=== PATIENT | female | born 1955 | race Caucasian/White ===

== ENCOUNTER 2017-03-30 12:51 | Outpatient (CLI) | payer OTHER ==
--- NOTE | 2017-03-30 15:07 | Magnetic Resonance Report ---
MRA HEAD WITHOUT CONTRAST INDICATION: Stroke. COMPARISON: None similar. FINDINGS: MRA of the head performed without intravenous contrast and demonstrates no evidence of flow-limiting stenosis, occlusion or vascular malformation. Left A1 hypoplastic. Please note that detection of aneurysms less than 5 mm is limited on this exam. CONCLUSION: Normal study of the [place]. Thank you for the opportunity to participate in this patient's care.
--- NOTE | 2017-03-30 15:44 | Magnetic Resonance Report ---
MRI BRAIN WITH AND WITHOUT CONTRAST INDICATION: Headache, conjunctival hemorrhage right eye. COMPARISON: None similar. FINDINGS: Multiplanar and multisequence MRI of the brain performed utilizing 15 ml MultiHance intravenously demonstrates no acute infarct, hemorrhage, mass effect or midline shift. No abnormal extra axial masses or fluid collections. Normal ventricles and sulci with minimal periventricular and slight white matter FLAIR and T2 weighted hyperintensities. Normal major intracranial vascular flow voids. No suspicious abnormal enhancement. Grossly normal eye globes and retrobulbar appearance. Normal posterior fossa with preserved basilar cisterns. Symmetric seventh and eighth nerve complexes. Dental susceptibility artifact. Rightward nasal septal bowing. Slight ethmoid sinusitis. Clear remainder imaged paranasal sinuses and mastoid air cells. Normal midline structures without evidence of Chiari malformation. CONCLUSION: No acute intracranial MRI abnormality with few incidental findings, as above. Thank you for the opportunity to participate in this patient's care.
== END 2017-03-30 12:52 | disposition home or self-care (01) ==
LOC: MRI 12:51
PROVIDERS: ATTEND Nurse Practitioner
DX: H11.31 Conjunctival hemorrhage, right eye (principal); J32.2 Chronic ethmoidal sinusitis; R51 Headache
CPT/HCPCS: 70544; 70553; A9577

== ENCOUNTER 2018-09-12 09:02 | Outpatient (CLI) | payer OTHER ==
[2018-09-12 10:36] LABS: Chol/HDL Ratio 3.31 %
== END 2018-09-12 09:03 | disposition home or self-care (01) ==
LOC: LAB 09:02
PROVIDERS: ATTEND Internal Medicine
DX: E11.9 Type 2 diabetes mellitus without complications (principal); E78.5 Hyperlipidemia, unspecified; E55.9 Vitamin D deficiency, unspecified; I10 Essential (primary) hypertension
CPT/HCPCS: 36415; 80061; 83036

== ENCOUNTER 2019-01-23 09:10 | Outpatient (CLI) | payer OTHER ==
[2019-01-23 10:40] LABS: Alanine Aminotransferase 20 units/L (7-56); Albumin 4.4 g/dL (3.9-5); BUN/Creatinine Ratio 38; Blood Urea Nitrogen 23 mg/dL (7-17); Calcium 9.3 mg/dL (8.4-10.2); Chol/HDL Ratio 2.51 %; HDL Cholesterol 62 mg/dL (40-59); Hemolysis Index 5; LDL Cholesterol,Direct 96 mg/dL (50-130)
== END 2019-01-23 09:11 | disposition home or self-care (01) ==
LOC: LAB 09:10
PROVIDERS: ATTEND Internal Medicine
DX: E78.5 Hyperlipidemia, unspecified (principal); E11.9 Type 2 diabetes mellitus without complications; R25.2 Cramp and spasm
CPT/HCPCS: 36415; 80053; 80061; 83036

== ENCOUNTER 2019-05-30 12:18 | Outpatient (CLI) | payer OTHER ==
--- NOTE | 2019-05-30 13:30 | Mammography Report ---
DIGITAL SCREENING MAMMOGRAM WITH CAD, 05/30/2019 INDICATION: Routine screening mammography. TECHNIQUE: Digital bilateral 2D mammography was obtained in the craniocaudal and mediolateral obliq ue projections. This examination was interpreted with the benefit of Computer-Aided Detection analysi s. COMPARISON: None available. FINDINGS: Breast Density: The breasts are heterogeneously dense, which may obscure small masses. A group of left upper calcifications and a left asymmetry near the calcifications on the CC view requ marcus additional imaging. There is no evidence of dominant mass, suspicious calcifications or big data platform architect ural distortion in the right breast. IMPRESSION: Left calcifications and asymmetry requiring additional imaging. Recommend recall for left lateral and spot magnification lateral and CC views and left breast ultrasound if needed. Follow up recommendation: Routine yearly Category 0: Incomplete. Needs additional imaging evaluation and/or prior mammograms for comparison. A "normal" or negative report should not discourage follow up or biopsy of a clinically significant f inding. A written summary of these findings will be mailed to the patient. The patient will be entered into a mammography reporting system which will generate a reminder letter for the patient's next appointmen t at the appropriate interval. The [employer] recommends yearly mammograms starting at age 40 and continuing as l mariano as a woman is in good health. Breast MRI is recommended for women with an approximate 20-25% or greater lifetime risk of breast cancer, including women with a strong family history of breast or ova yanet cancer or who have been treated for Hodgkin's disease. Signer Name: Pradip Grijalva MD Signed: 05/30/2019 1:26 PM Workstation Name: [id number]
== END 2019-05-30 12:19 | disposition home or self-care (01) ==
LOC: MAMMO 12:18
PROVIDERS: ATTEND Internal Medicine
DX: Z12.31 Encounter for screening mammogram for malignant neoplasm of breast (principal)
CPT/HCPCS: 77067

== ENCOUNTER 2019-07-18 10:22 | Outpatient (CLI) | payer OTHER ==
--- NOTE | 2019-07-18 12:31 | Mammography Report ---
DIGITAL DIAGNOSTIC MAMMOGRAM WITH CAD, 07/18/2019 INDICATION: Recall to evaluate calcifications and asymmetry identified at screening. R92.8 TECHNIQUE: Digital left mammographic imaging was performed. Magnification views were obtained. This examination was interpreted with the benefit of Computer-aided Detection analysis. COMPARISON: 05/30/2019 FINDINGS: Breast Density: The breasts are heterogeneously dense, which may obscure small masses. Spot magnification views demonstrate a cluster of amorphous calcifications with too many to count reshma cifications. They are located at 12:30 o'clock approximately 5 cm from the nipple. No associated mass . The previously identified asymmetry demonstrates satisfactory effacement on spot images. IMPRESSION: A suspicious cluster of calcifications at 12:30 o'clock left breast. Recommend stereotact ic needle core biopsy of the left breast. Follow up recommendation: Biopsy BI-RADS Category 4: Suspicious for Malignancy. I discussed the findings and the recommendation for a left stereotactic biopsy with Dr. Jefferson on 07/18/2019 at 12:26 PM EST. A "normal" or negative report should not discourage follow up or biopsy of a clinically significant f inding. A written summary of these findings will be mailed to the patient. The patient will be entered into a mammography reporting system which will generate a reminder letter for the patient's next appointmen t at the appropriate interval. According to the [employer], yearly mammograms are recommended starting at age 40 and continuing as long as a woman is in good health. Breast MRI is recommended for women with an rosario roximately 20-25% or greater lifetime risk of breast cancer, including women with a strong family his tory of breast or ovarian cancer and women who have been treated for Hodgkin's disease. Signer Name: Pradip Grijalva MD Signed: 07/18/2019 12:27 PM Workstation Name: [id number]
== END 2019-07-18 10:23 | disposition home or self-care (01) ==
LOC: MAMMO 10:22
PROVIDERS: ATTEND Internal Medicine
DX: R92.8 Other abnormal and inconclusive findings on diagnostic imaging of breast (principal)

== ENCOUNTER 2019-08-08 09:52 | Outpatient (CLI) | payer OTHER ==
--- NOTE | 2019-08-08 12:54 | Mammography Report ---
DIGITAL DIAGNOSTIC MAMMOGRAM WITH CAD, 08/08/2019 INDICATION: For clip position after stereotactic biopsy. CLIP S/P STEREO TECHNIQUE: Digital left mammographic imaging was performed. This examination was interpreted with the benefit of Computer-aided Detection analysis. COMPARISON: 07/18/2019 FINDINGS: Breast Density: The breast is heterogeneously dense, which may obscure small masses. The targeted calcifications have largely been removed and the clip position is concordant. A 2.8 cm p ostbiopsy hematoma at the clip. IMPRESSION: Successful stereotactic biopsy with concordant clip placement. Follow up recommendation: No recall. Post biopsy imaging. A "normal" or negative report should not discourage follow up or biopsy of a clinically significant f inding. A written summary of these findings will be mailed to the patient. The patient will be entered into a mammography reporting system which will generate a reminder letter for the patient's next appointmen t at the appropriate interval. According to the [employer], yearly mammograms are recommended starting at age 40 and continuing as long as a woman is in good health. Breast MRI is recommended for women with an rosario roximately 20-25% or greater lifetime risk of breast cancer, including women with a strong family his tory of breast or ovarian cancer and women who have been treated for Hodgkin's disease. Signer Name: Pradip Grijalva MD Signed: 08/08/2019 12:50 PM Workstation Name: [id number]
--- NOTE | 2019-08-08 13:35 | Mammography Report ---
STEREOTACTIC NEEDLE BIOPSY WITH CLIP PLACEMENT LEFT BREAST INDICATION: LEFT BREAST CALCIFICATIONS. COMPARISON: 07/18/2019 FINDINGS: Consent for the procedure was obtained with the use of an calendar control clerk blood bank. A timeout was called. The bibi ent was placed prone on the stereotactic biopsy table and the skin was cleansed with Chloro prep. Using stereotactic guidance, sterile technique and 1% lidocaine for skin anesthesia and 2% lidocaine with epinephrine for deep anesthesia, 8-gauge Mammotome vacuum-assisted biopsy was performed from a C C from above approach. Samples were obtained around the clock face and service center representative calcifications were identified on a specimen radiograph. A localizer clip was placed at the biopsy site and the prob e was removed. Hemostasis was achieved with pressure to the site. A sterile dressing was applied. A post procedure mammogram demonstrated removal of at least some of the calcifications and concordant location of the biopsy clip. The patient tolerated the procedure well and there were no apparent com plications. She left the department in good condition with a cold pack applied to the biopsy site. e was given instructions for wound care and follow-up. IMPRESSION: 1. Successful uncomplicated stereotactic biopsy of left breast calcifications.. Signer Name: Pradip Grijalva MD Signed: 08/08/2019 1:30 PM Workstation Name: [id number]
== END 2019-08-08 09:53 | disposition home or self-care (01) ==
LOC: SPVWC 09:52
PROVIDERS: ATTEND Internal Medicine
DX: R92.1 Mammographic calcification found on diagnostic imaging of breast (principal); N64.89 Other specified disorders of breast; N62 Hypertrophy of breast
CPT/HCPCS: 19081; 77065; 88305; A4648